=== PATIENT | male | born 1950 | race Hispanic/Latino ===

== ENCOUNTER → 2019-08-20 | Outpatient (CLI) | payer OTHER ==
[~2019-08-20] MED LIST: ASPI-1197 PO; LEVO100 PO; LOSA50TA64 PO; MELO-108 PO; METF-444 PO; OMEP20TA25 PO; SIMV40TA59 PO
== END | disposition home or self-care (01) ==
LOC: RAH 15:15
PROVIDERS: ATTEND Internal Medicine
DX: M54.9 Dorsalgia, unspecified (principal); R07.81 Pleurodynia
CPT/HCPCS: 71046; 71100; 72070

== ENCOUNTER 2021-05-19 16:51 | Emergency (ER) | payer OTHER ==
[~2021-05-19] VITALS: Ht 170.2 cm; Wt 105.2 kg
[~2021-05-19 16:51] MED LIST changes: -ASPI-1197 PO; +CELE-84 PO; +GLUC-172 PO; +LOSA100T58 PO; -LOSA50TA64 PO; +NAPR220T57 PO
[2021-05-19 17:00] VITALS: BP 132/48
[2021-05-19] MEDS ORDERED: IOHEXOL 350 MG/ML 100ML INFUS..BTL IV ONE (17:34)
[2021-05-19 17:41] LABS: BASOPHILS % (AUTO) 0.7 % (0.0-5.0); EOSINOPHILS % (AUTO) 1.8 % (0.0-8.0); HEMATOCRIT 42.1 % (42-54); LYMPHOCYTES % (AUTO) 21.9 % (21.0-51.0); MEAN CORPUSCULAR HEMOGLOBIN 31.3 pg (27.0-33.0); MEAN CORPUSCULAR HGB CONC 33.5 g/dL (32.0-36.0); MEAN CORPUSCULAR VOLUME 93.3 fL (79-99); MONOCYTES % (AUTO) 8.5 % (3.0-13.0); NEUTROPHILS % (AUTO) 66.8 % (40.0-77.0); PLATELET COUNT (AUTO) 314 K/uL (130-400); RED BLOOD CELL COUNT(AUTO) 4.51 MIL/uL (4.50-6.20); WHITE BLOOD COUNT (AUTO) 11.5 K/uL (4.8-10.8)
[2021-05-19 17:56] LABS: CREATININE 1.9 mg/dL (0.5-1.5); POTASSIUM 4.2 mmol/L (3.5-5.1)
[2021-05-19] MEDS ORDERED: 0.9%NACL 1000ML 1,000 ML IV STA (19:20)
[2021-05-19] MEDS ORDERED: CYCL10TA7 PO (19:43)
[2021-05-19 20:27] VITALS: BP 130/52
== END 2021-05-19 20:28 | disposition home or self-care (01) ==
LOC: EDH 16:51
DX: S16.1XXA Strain of muscle, fascia and tendon at neck level, initial encounter (principal); S20.219A Contusion of unspecified front wall of thorax, initial encounter; S20.20XA Contusion of thorax, unspecified, initial encounter; I10 Essential (primary) hypertension; E11.9 Type 2 diabetes mellitus without complications; E78.00 Pure hypercholesterolemia, unspecified; Z98.890 Other specified postprocedural states; Z79.84 Long term (current) use of oral hypoglycemic drugs; Z79.899 Other long term (current) drug therapy; V49.49XA Driver injured in collision with other motor vehicles in traffic accident, initial encounter; Y93.89 Activity, other specified; Y92.410 Unspecified street and highway as the place of occurrence of the external cause; Y99.8 Other external cause status
CPT/HCPCS: 36415; 70450; 71275; 72125; 74174; 80048; 85025; 86850; 86900; 86901; 99285; Q9967

== ENCOUNTER → 2022-08-29 | Outpatient (CLI) | payer OTHER ==
[~2022-08-29] MED LIST changes: -CELE-84 PO; -GLUC-172 PO; -MELO-108 PO; -NAPR220T57 PO; +OMEP20TA20 PO; -OMEP20TA25 PO
== END | disposition home or self-care (01) ==
LOC: RAH 10:23
PROVIDERS: ATTEND Internal Medicine
DX: M19.032 Primary osteoarthritis, left wrist (principal); M25.532 Pain in left wrist
CPT/HCPCS: 73110

== ENCOUNTER → 2023-05-31 | Outpatient (CLI) | payer OTHER ==
[~2023-05-31] MED LIST changes: -LOSA100T58 PO; +LOSA100T59 PO
== END | disposition home or self-care (01) ==
LOC: RAH 11:36
PROVIDERS: ATTEND Internal Medicine
DX: M79.642 Pain in left hand (principal)
CPT/HCPCS: 73110; 73130

== ENCOUNTER → 2024-01-30 | Outpatient (CLI) | payer OTHER | END | disposition home or self-care (01) | LOC: RAH 10:02 | PROVIDERS: ATTEND Internal Medicine | DX: M47.812 Spondylosis without myelopathy or radiculopathy, cervical region (principal); M54.2 Cervicalgia; M48.02 Spinal stenosis, cervical region | CPT/HCPCS: 72040 ==

== ENCOUNTER → 2024-08-20 | Outpatient (CLI) | payer OTHER | END | disposition home or self-care (01) | LOC: RAH 09:35 | PROVIDERS: ATTEND Clinical Nurse Specialist Family Health | DX: J45.909 Unspecified asthma, uncomplicated (principal); J06.9 Acute upper respiratory infection, unspecified; R05.9 Cough, unspecified | CPT/HCPCS: 71046 ==

== ENCOUNTER → 2024-09-17 | Outpatient (CLI) | payer OTHER | END | disposition home or self-care (01) | LOC: SHCH 08:51 | PROVIDERS: ATTEND Internal Medicine Cardiovascular Disease | DX: I25.10 Atherosclerotic heart disease of native coronary artery without angina pectoris (principal) | CPT/HCPCS: 93306 ==

== ENCOUNTER → 2024-12-09 | Outpatient (CLI) | payer OTHER | END | disposition home or self-care (01) | LOC: RESP 14:21 | PROVIDERS: ATTEND Internal Medicine Cardiovascular Disease | DX: R06.02 Shortness of breath (principal); F17.210 Nicotine dependence, cigarettes, uncomplicated | CPT/HCPCS: 94060 ==

== ENCOUNTER → 2025-09-07 | Outpatient (CLI) | payer OTHER ==
[~2025-09-07] MED LIST changes: +IOHEXOL-350 50ML VIAL IV ONE
--- NOTE | 2025-09-07 15:04 | HMCIMG ---
EXAM: CT Chest with and without Intravenous Contrast. CLINICAL HISTORY: Obstructive Sleep Apnea (KELLY), *ATTN TO LUNGS* TECHNIQUE: Axial computed tomography images of the chest with and without intravenous contrast. CONTRAST: IV contrast COMPARISON: None provided. FINDINGS: LUNGS: The lungs are clear.No pulmonary mass. PLEURAL SPACES: No pneumothorax. No pleural effusion. HEART: No cardiomegaly. No significant pericardial effusion. LYMPH NODES: No lymphadenopathy. BONES: Osseous degenerative changes. Metallic implant in the right scapula and head of humerus with adjacent metallic artifact; absence of radio-lucency density suggests underlying infection. No acute fracture. UPPER ABDOMEN: The upper abdominal solid organs are unremarkable. VASCULATURE: Mild atherosclerotic changes in the visualized arterial vasculature in the form of a fibrocalcified plaque.IMPRESSION: 1. No acute intrathoracic findings. 2. Metallic implant in the right scapula and head of humerus with adjacent metallic artifact; absence of radio-lucency density suggests underlying infection. /[place]
== END | disposition home or self-care (01) ==
LOC: RAH 12:30
PROVIDERS: ATTEND Internal Medicine Cardiovascular Disease
DX: I70.8 Atherosclerosis of other arteries (principal); G47.33 Obstructive sleep apnea (adult) (pediatric); Z96.611 Presence of right artificial shoulder joint
CPT/HCPCS: 71270; Q9967

== ENCOUNTER 2025-10-03 20:29 | Emergency (ER) | payer OTHER ==
[~2025-10-03] VITALS: Ht 170.2 cm; Wt 104.3 kg
[~2025-10-03 20:29] MED LIST changes: -IOHEXOL-350 50ML VIAL IV ONE
--- NOTE | 2025-10-03 20:45 | ERN ---
ED Note History of Present Illness Stated Complaint: NECK PAIN, LEFT EYE PAIN, HTN Chief Complaint: Multiple Complaints Time Seen by MD: 20:30 Dictation: Patient is a 75-year-old male with a past medical history of diabetes mellitus, hypertension, hyperlipidemia who presented to the ER complaining of neck pain x5 days, also today he notes that he has I pain, said he checked his blood pressure and it was above 150 systolic, usually is in the 130s. Patient takes losartan 50 mg daily in the morning. BP 153/79 at the time I interviewed the patient. Denies chest pain. Allergies: Coded Allergies: No Known Drug Allergies (Verified Allergy, Unknown, 10/04/16) Home Meds Reported Medications Losartan Potassium (Losartan Potassium) 100 Mg Tablet, 100 MG PO DAILY, TAB 08/10/20 Metformin HCl (Metformin HCl) 500 Mg Tablet, 500 MG PO BIDAC, TAB 10/04/16 Omeprazole (Omeprazole) 20 Mg Tablet.dr, 20 MG PO AM, TAB 03/21/15 Levothyroxine Sodium (Levothroid/Synthroid) 100 Mcg Tab, 100 MCG PO AM, TAB 03/21/15 Simvastatin (ZOCOR) 40 Mg Tablet, 40 MG PO PM, TAB 03/21/15 Past Medical History Past Medical History: Diabetes-Type II, High Cholesterol, Hypertension, Other Additional Past Medical Hx: SLEEP APNEA Surgical History: Other Surgical History Other: BLT SHOULDER, RT KNEE, LEFT ARM Family History: Negative Social History: Negative Review of System Dictation NEGATIVE EXCEPT PER HPI Constitutional: Negative for fever,chills, and weight loss Eyes: Negative for injury, pain,redness, and discharge ENT: Negative for injury, reports left side pain. Cardiovascular: denies chest pain, palpitations, and edema Respiratory: Negative for shortness of breath, cough, and wheezing, Abdomen/GI: Negative for abdominal pain, nausea, vomiting, diarrhea, and con stipation Back: Negative for injury and pain : Negative for injury, bleeding and discharge MS/Extremity: Negative for injury and deformity Skin: Negative for rash, and discoloration Neuro: Negative for headache, weakness, numbness, tingling, and seizure Psych: Negative for suicide ideation, homicidal ideation, and hallucinations Initial Vital Sign VS Vital Signs Date Time Temp Pulse Resp B/P (MAP) Pulse Ox O2 Delivery O2 Flow Rate FiO2 10/03/25 20:30 97.9 77 18 135/81 98 Room Air 10/03/25 20:37 0 21 Physical Exam Dictation General: awake, alert, NAD Head/Face: Normocephalic, atraumatic Eyes: PERRL, EOMI, vision at baseline ENT: oral cavity clear, TMs clear, no signs of infection Neck: Trachea midline, supple, no nuchal rigidity Cardiovascular: RRR, normal S1/S2, No MRGs, no JVD Respiratory: CTAB, no respiratory distress, No rales or wheezes Abdomen: Soft , no tender Skin: Warm, dry, normal turgor, no rash MS/Extremity: Pulses equal, no cyanosis, neurovascular intact, FROM Neuro: COAx4, GCS 15, strength 5/5, CN 2-12 intact, normal cerebellar exam, normal gait, Psych: Normal behavior, mood, and affect normal Results (Laboratory/Radiology) Laboratory/Radiology Laboratory Tests Test 10/03/25 21:07 White Blood Count 8.1 K/uL (4.8-10.8) Red Blood Count 3.83 MIL/uL (4.50-6.20) L Hemoglobin 12.5 g/dL (14.0-18.0) L Hematocrit 37.8 % (42-54) L Mean Corpuscular Volume 98.7 fL (79-99) Mean Corpuscular Hemoglobin 32.6 pg (27.0-33.0) Mean Corpuscular Hemoglobin Concent 33.1 g/dL (32.0-36.0) Red Cell Distribution Width 13.1 % (11.0-15.5) Platelet Count 250 K/uL (130-400) Mean Platelet Volume 8.8 fL (7.5-10.5) Nucleated Red Blood Cells 0.0 % (0.0-0.19) Sodium Level 141 mmol/L (136-145) Potassium Level 4.2 mmol/L (3.5-5.1) Chloride Level 104 mmol/L (101-111) Carbon Dioxide Level 32 mmol/L (21-32) Blood Urea Nitrogen 21 mg/dL (7-18) H Creatinine 1.2 mg/dL (0.5-1.3) Glomerular Filtration Rate Calc 63 mL/min (>90) Random Glucose 127 mg/dL (70-105) H Total Calcium 8.8 mg/dL (8.5-10.1) ED Course ED Course Orders Procedure Category Date Status Time Losartan 50 Mg Tablet PHA 10/03/25 Complete (Cozaar 50 Mg Tab) 21:00 Cyclobenzaprine Hcl PHA 10/03/25 Complete (Cyclobenzaprine Hcl 21:00 Ibuprofen 800 Mg Tab PHA 10/03/25 Complete (Motrin) 21:00 Cbc Without LAB 10/03/25 Complete Differential 21:00 Basic Metabolic Panel LAB 10/03/25 Complete 21:00 Current Medications Medications (Trade) Dose Ordered Sig/Melissa Route PRN Reason Start Time Stop Time Status Last Admin Dose Admin Cyclobenzaprine HCl (Cyclobenzaprine HCl) 5 mg ONCE ONCE PO 10/03/25 21:00 10/03/25 21:01 DC 10/03/25 20:57 Ibuprofen (moTRIN) 800 mg ONCE ONCE PO 10/03/25 21:00 10/03/25 21:01 DC 10/03/25 20:58 Losartan Potassium (CozAAR 50 mg TAB) 50 mg ONCE ONCE PO 10/03/25 21:00 10/03/25 21:01 DC 10/03/25 20:57 Vital Signs Date Time Temp Pulse Resp B/P (MAP) Pulse Ox O2 Delivery O2 Flow Rate FiO2 10/03/25 20:37 98.2 69 18 153/79 97 Room Air* 0 10/03/25 20:30 97.9 77 18 135/81 98 Room Air Medical Decision Making MDM Patient has presented with neck pain x5 days, acute eye pain, elevated blood pressure 153/79 Uncontrolled hypertension Neck pain Muscle spasm Ordered muscle relaxant cyclobenzaprine 5 mg Ordered Motrin 800 mg Ordered losartan 50 mg. Laboratory performed CBC and BNP within normal limits She will be discharged with a muscle relaxant medication. BP medication amlodipine added to his home medication Must follow up with his primary care physician DX & DISP Disposition: Discharge Departure Impression: Primary Impression: Cervical strain Additional Impression: Hypertension Condition: Stable Scripts Amlodipine Besylate (Amlodipine Besylate) 5 Mg Tablet 1 TAB PO DAILY PRN for IF SBP GREATER THAN 140 for 30 Days, #30 TAB 0 Refills Prov: NAVEED MARTÍNEZ MD 10/03/25 Lidocaine (Lidocaine) 4 % Adh..patch 1 PATCH TP DAILY for 5 Days, #10 PATCH 0 Refills Prov: NAVEED MARTÍNEZ MD 10/03/25 Cyclobenzaprine HCl (Cyclobenzaprine HCl) 7.5 Mg Tablet 5 MG PO BID, #10 TAB Prov: NAVEED MARTÍNEZ MD 10/03/25 Ibuprofen (Ibuprofen) 600 Mg Tablet 1 TAB PO TID for pain for 5 Days, #15 TAB 0 Refills with food Prov: NAVEED MARTÍNEZ MD 10/03/25 Additional Instructions: RETURN TO ER FOR ANY ACUTE OR WORSENING SYMPTOMS. FOLLOW-UP IN 1-2 DAYS WITH PRIMARY PROVIDER FOR RECHECK OF TODAY'S SYMPTOMS. Referrals: VÍCTOR ZELAYA MD (PCP) NAVEED MARTÍNEZ MD Oct 03, 2025 20:45
[2025-10-03] MEDS: CYCLOBENZAPRINE HCL 10 MG TABLET PO ONE (20:57)
[2025-10-03 21:14] LABS: NUCLEATED RED BLOOD CELLS 0.0 % (0.0-0.19); PLATELET COUNT (AUTO) 250.0 K/uL (130-400); RED BLOOD CELL COUNT(AUTO) 3.83 MIL/uL (4.50-6.20); RED CELL DISTRIBUTION WIDTH 13.1 % (11.0-15.5); WHITE BLOOD COUNT (AUTO) 8.1 K/uL (4.8-10.8)
[2025-10-03 21:22] LABS: CREATININE 1.2 mg/dL (0.5-1.3); GLOMERULAR FILTR. RATE CALC 63.0 mL/min (>90); GLUCOSE,RANDOM 127.0 mg/dL (70-105); SODIUM SERUM 141.0 mmol/L (136-145); UREA NITROGEN, BLOOD 21.0 mg/dL (7-18)
[2025-10-03] MEDS ORDERED: CYCL7.5T27 PO (21:35)
[2025-10-03] MEDS ORDERED: AMLO-257 PO (21:35)
[2025-10-03] MEDS ORDERED: IBUP-1492 PO (21:35)
[2025-10-03] MEDS ORDERED: LIDO1ADH82 TP (21:35)
[2025-10-03 21:45] VITALS: BP 142/78; PULSE 72; RESP 20; TEMP 98.3; O2SAT 98
== END 2025-10-03 21:57 | disposition home or self-care (01) ==
LOC: EDH 20:29
DX: S16.1XXA Strain of muscle, fascia and tendon at neck level, initial encounter (principal); I10 Essential (primary) hypertension; E11.9 Type 2 diabetes mellitus without complications; E78.00 Pure hypercholesterolemia, unspecified; G47.30 Sleep apnea, unspecified; Z79.899 Other long term (current) drug therapy; X58.XXXA Exposure to other specified factors, initial encounter; Y93.89 Activity, other specified; Y92.89 Other specified places as the place of occurrence of the external cause; Y99.8 Other external cause status
CPT/HCPCS: 36415; 80048; 85027; 99284

== ENCOUNTER → 2025-11-17 | Outpatient (CLI) | payer OTHER ==
[~2025-11-17] MED LIST changes: +AMLO-257 PO; +CYCL7.5T27 PO; +IBUP-1492 PO; +LIDO1ADH82 TP
--- NOTE | 2025-11-18 01:53 | HMCIMG ---
EXAM: Whole body bone scan. INDICATION: Recently diagnosed prostate cancer. REFERENCE EXAMINATION: None TECHNIQUE: 25.0 mCi of technetium 99m MDP intravenously. Delayed images were acquired at approximately 3 hours from tracer administration. FINDINGS: The radiopharmaceutical is seen in the expected bio distribution. Focal uptake noted in the body of LV3-LV4 on the left side - likely degenerative. No abnormal uptake noted in the entire skeleton. Post-op changes noted in the bilateral shoulder joint and right knee joint. IMPRESSION: Normal Bone scan with no obvious evidence of osteoblastic skeletal metastases. /[place]
== END | disposition home or self-care (01) ==
LOC: RAH 10:11
PROVIDERS: ATTEND Urology
DX: C61 Malignant neoplasm of prostate (principal); M19.011 Primary osteoarthritis, right shoulder; M19.012 Primary osteoarthritis, left shoulder
CPT/HCPCS: 78306; A9503